=== PATIENT | male | born 2000 | race Hispanic/Latino ===

== ENCOUNTER 2022-11-16 15:47 | Emergency (ER) | payer OTHER ==
[~2022-11-16] VITALS: Ht 154.9 cm; Wt 61.0 kg
[2022-11-16 16:01] VITALS: BP 113/77
[2022-11-16] MEDS ORDERED: METHOCARBAMOL500 MG PO (17:02)
[2022-11-16] MEDS ORDERED: NAPROXEN500 MG PO (17:02)
[2022-11-16 17:22] VITALS: BP 113/77
== END 2022-11-16 17:32 | disposition home or self-care (01) | DRG 563 ==
LOC: ED 15:47
DX: S39.012A Strain of muscle, fascia and tendon of lower back, initial encounter (principal); X50.0XXA Overexertion from strenuous movement or load, initial encounter; Y93.89 Activity, other specified; Y99.0 Civilian activity done for income or pay